=== PATIENT | male | born 1945 | race African-American/Black ===

== ENCOUNTER 2016-10-18 19:38 | Inpatient (IN) | payer MEDICARE ==
--- NOTE | ~2016-10-18 | DS ---
Discharge Summary [facility] [address] [facility] [place]. [address] NAME: XIMENA BARCENAS : 49 STATUS : DIS IN PAT#: [id number] AGE: 71 ADM/REG DATE : 10/19/16 MR#: [id number] REPORT SERV DATE: 10/30/16 DICTATED BY: ALEKS BUI DATE: 10/29/16 REPORT STATUS : Draft TRANSCRIBED BY: ANCA DATE: 10/29/16 Data Collection from hospitalization DISCHARGE DIAGNOSES: 1. Advanced Lewy-Body dementia with severe dysphagia. 2. Conditioned with increased lethargy and dehydration. 3. Hypertension. 4. History of cerebrovascular disease. 5. Chronic kidney disease. 6. Anemia. 7. Psoriasis and xerosis. 8. Chronic constipation. 9. Subclinical hyperthyroidism. 10.Former smoker. CONSULTATIONS: None. PROCEDURES PERFORMED: 1. CT scan of the brain without contrast, 10/18/2016. 2. Electroencephalogram, 10/21/2016. DISCHARGE MEDICATIONS: Isopto Atropine 2 drops three times a day as instructed, Kenalog ointment applied to affected area topically daily, Tylenol suppository 650 mg per rectum every six hours as needed, Transdermal Scopolamine Patch one patch topically every 72 hours, morphine 2 mg subcutaneously every four hours as needed for shortness of breath and pain, Tylenol 325 mg two tablets every six hours as needed for temperature greater than 100.5, Ativan 0.5 mg subcutaneously every four hours as needed for restlessness, and scopolamine patch 1.5 mg every 72 hours. CONDITION AT DISCHARGE: Stable. DISPOSITION: The patient was discharged to [facility]. HOSPITAL COURSE: This is a 71-year-old man who has Lewy body dementia and is a patient of ours of [facility]. He has had a decline in his mentation over the past few months, and two weeks prior to this admission he required feedings, whereas he had not required this before and he was speaking much less. On the day of admission, I received a call from the Respite at [facility] reporting that he had quite a decline over the past two weeks. He was nonverbal, he was not eating at all. He was not walking or standing. Due to his decline, he was transferred to the emergency room for evaluation. In the emergency room, he had a blood pressure of 69/30 and a temperature of 91 rectally. He was started on hydration. He had an essentially normal BMP. Urinalysis was negative. A CT scan of the brain without contrast did not show anything acute, only moderate chronic changes of ischemia. He had a normal troponin in the emergency room. The patient's family had elected for comfort care at this point. He was admitted to the hospital for further evaluation and treatment. Upon admission, the patient had been pocketing food with no significant nutritional intake Discharge Summary [address] [address] NAME: XIMENA BARCENAS : 49 STATUS : DIS IN PAT#: [id number] AGE: 71 ADM/REG DATE : 10/19/16 MR#: [id number] REPORT SERV DATE: 10/30/16 DICTATED BY: ALEKS BUI DATE: 10/29/16 REPORT STATUS : Draft TRANSCRIBED BY: ANCA DATE: 10/29/16 for one to three days. It was felt that as hypothermia was possibly related to aspiration and sepsis versus the flu. He was being held n.p.o. Oral care was provided. We were going to use the Kam Hugger as needed for hypothermia. He was going to be checked for the flu. We would obtain blood cultures and start him on Zosyn for possible aspiration pneumonia. Comfort care only was going to be provided, and he would be given end of life care in the form of an analgesia needed or any anti-anxiety medication as needed. A scopolamine patch would be placed and changed regularly as well as atropine drops for oral secretions. The following day, the patient was lethargic, he would only say few words occasionally, he was not eating. Blood culture showed no growth at this time. Urinalysis was negative. Blood cultures were negative. Chest x-ray was negative. IV fluids and Zosyn were continued. The Vega catheter was removed. There was blood in the Veag likely due to trauma. He had some jerking movement of the right arm. An EEG was requested. Speech/Language Pathology evaluated the patient. On the , an EEG was performed. He had an occasional cough. Atropine was increased. The scopolamine patch was stopped. The following day, the patient was still not eating, he had shallow inspiration. Chest x-ray shows otherwise no acute cardiopulmonary abnormality. Speech and language pathology performed a bedside swallow study. The patient had overt signs and symptoms of aspiration. The patient had not eaten in several days. Discharge planning was performed. On 10/23/2016, the patient had some bloody sputum. I felt the bloody sputum was likely due to dry mucosa and from the drying effects of oxygen. Oxygen was discontinued. He remained n.p.o., prognosis was grim. Discharge instructions were given. Due to his stable condition, he was discharged to [facility] with the above-stated instructions. Information collected by: Gillian Armenta I submit the above information as my discharge summary. TG/MODL Aleks Bui M.D. / [id number] CC: Aleks Bui M.D. [facility]
--- NOTE | ~2016-10-18 | EEG ---
Electroencephalogram [facility] [address] [place]. [address] NAME: XIMENA BARCENAS : 49 STATUS : ADM IN PAT#: [id number] AGE: 71 ADM/REG DATE : 10/19/16 MR#: [id number] REPORT SERV DATE: 10/21/16 DICTATED BY: SISI SKAGGS DATE: 10/21/16 REPORT STATUS : Draft TRANSCRIBED BY: MODL DATE: 10/21/[address] France Martinez. [id number]. This is an 18 channel digital EEG of a patient who has been unresponsive, was evidently found down hypothermic and hypertensive, with a history of dementia and underlying traumatic brain injury. The background reveals low voltage, slow activity, rarely with intermixed alpha or theta. Some frontal slow occurs occasionally, not in any runs suggesting frontal intermittent rhythmic delta. When the patient seems to be somewhat more alert, there is muscle artifact, and occasional jerking that seems to coincide with muscle spikes only. Nothing clearly epileptiform was seen or focal. Photic stimulation did not result in driving. Sleep patterns were not seen. No clear focality or laterality noted. EKG was sinus rhythm 72. IMPRESSION: 1. SLOW RECORD WITH NO EVIDENCE THAT ATTEMPTS TO HAVE BEEN MADE TO WAKE THE PATIENT, SO IT IS NOT CLEAR WHETHER THERE IS AN IMPROVEMENT IF THAT WERE DONE. THE PATIENT WAS NOTED TO TALK SOMETIMES WITH QUITE A SLOW LOW-VOLTAGE BACKGROUND. THIS SUGGESTS ENCEPHALOPATHY OF ANY ETIOLOGY, TOXIC, METABOLIC, MULTIPLE STRUCTURAL DISORDER, ETC. 2. JERKING DID NOT SHOW ANY EPILEPTIFORM COMPONENTS. SF/MARIELYL Sisi Skaggs M.D. / [id number] CC: Mayra Bui M.D. UNKNOWN
--- NOTE | ~2016-10-18 | HP ---
History And Physical [place] [id number] [facility] [place]. [address] NAME: XIMENA BARCENAS : 49 STATUS : ADM Claudia PAT#: [id number] AGE: 71 ADM/REG DATE : 10/18/16 MR#: [id number] REPORT SERV DATE: 10/19/16 DICTATED BY: ALEKS BUI DATE: 10/19/16 REPORT STATUS : Draft TRANSCRIBED BY: MODL DATE: 10/19/16 DATE OF ADMISSION: 10/18/2016 HISTORY OF PRESENT ILLNESS: This is a 71-year-old black man with Lewy body dementia, a patient of ours at [facility]. Review of his chart reveals a steady decline in his mentation over the last few months, such that 2 weeks ago, he required feeding whereas he had not before and he was speaking much less. On the day of admission, I received a call from the respite site at [facility] reporting that he had had quite a decline in the eyes of that nurse from the two weeks prior when he had seen him. He was nonverbal. He was not eating at all. He was not walking or standing whereas two weeks before, the nurse described him actually lifting an ottoman putting it up on a chair for them, he was strong enough for that. Due to this decline, he was transferred to the emergency room for evaluation. In the emergency room, he was found to have a blood pressure down in the 69/30, a temperature of 91 degrees rectally. He was begun on hydration. He had an essentially normal BMP. White count was 5000. Urinalysis was negative. CT of the head did not show anything acute, only moderate chronic changes of ischemia. He had a normal troponin in the emergency room. There was discussion in the emergency room with the family and confusion about what their actual desires were with the POST form showing that he was DNR with limited interventions, but with the daughter wondering if she should give full treatment. I spoke more with the daughter on the morning after admission and more in detail with her and the family, and they have chosen at this point comfort care. PAST MEDICAL HISTORY: He does have Lewy body dementia as well as recent weight loss, history of cerebrovascular disease, hypertension, chronic kidney disease with anemia, psoriasis and xerosis, chronic constipation, and subclinical hyperthyroidism. SURGERIES: Included a right total knee replacement, ablation for prostate cancer. SOCIAL HISTORY: He lives with his daughter and her partner. He is a former smoker. REVIEW OF SYSTEMS: Besides that mentioned above, no recent vomiting. He has had a cough when he eats, at least on the day prior to admission. He has been quite sleepy the day prior to admission, and he has had increased secretions for 2 to 3 days prior to admission. PHYSICAL EXAMINATION: VITAL SIGNS: This morning, blood pressure 81/50, temperature 99 with a Kam Hugger on, heart rate 118, respiratory rate 22, O2 saturation has remained between 98 and 100 on 2 L. GENERAL: He is lying in bed, unresponsive to my voice. He does awaken and flutter his eyes when he is moved. He has drooling of his mouth. RESPIRATORY: His breathing is with some mild difficulty. ABDOMEN: Soft with normal bowel sounds. CARDIOVASCULAR: Heart rate is rapid but regular. He has no edema of the legs. SKIN: He has some dryness of the skin of upper and lower extremities. He has 2 miniscule healing biopsy sites on his left upper arm from a biopsy done six days ago, one on the left History And Physical [address] [address] NAME: XIMENA BARCENAS : 49 STATUS : ADM Claudia PAT#: [id number] AGE: 71 ADM/REG DATE : 10/18/16 MR#: [id number] REPORT SERV DATE: 10/19/16 DICTATED BY: ALEKS BUI DATE: 10/19/16 REPORT STATUS : Draft TRANSCRIBED BY: MODL DATE: 10/19/16 upper arm and one on the left upper chest. LABORATORY DATA: The morning of admission, his procalcitonin is normal at 0.05. His lactate is normal. He has mild increase in his transaminases. ASSESSMENT AND PLAN: 1. Lewy body dementia, apparently progressing. 2. Dysphagia, pocketing food with no significant nutritional intake for 1 to 3 days. 3. Hypothermia, perhaps related to aspiration and sepsis versus the flu. We will keep him n.p.o. for now. Give oral care. Use the Kam Hugger as needed for hypothermia. Check him for the flu, do some blood cultures, and get him started on Zosyn for possible aspiration pneumonia. After the discussion this morning with the family, I have signed a POST form indicating comfort care only and he will be given end-of-life care in the form of any analgesia needed, any antianxiety medications needed, a scopolamine patch changed regularly, as well as atropine drops for the oral secretions, and tomorrow a plan will be made for his disposition. ELISA/ANCA Aleks Bui M.D. / [id number] CC: Aleks Bui M.D.
[~2016-10-18 19:38] MED LIST: APRES50 PO; CALTRA600D PO; CAT3 PO; COUMADIN4 MG PO; COUMADIN6 MG PO; COUMADIN7.5 MG PO; DRISDOL50000 UNT PO; FOLIC PO; HYDROCHLOROT12.5 MG PO; HYDROCHLOROT25 MG PO; LOTE10 PO; LOTE20 PO; NAMENDA10 MG PO; NORV5 PO; OTC EYE DROPS OPH; ZOCOR40 PO
[2016-10-18] MEDS ORDERED: SENTAB PO (21:08)
[2016-10-18] MEDS ORDERED: MIRALAX POWDER1 PKT PO (21:08)
[2016-10-18] MEDS ORDERED: LAMIS15 TOP (21:08)
[2016-10-18] MEDS ORDERED: TRIAMCINOLONE O80 GM TOP (21:09)
[2016-10-18] MEDS ORDERED: ZOCOR40 PO (21:09)
[2016-10-18] MEDS ORDERED: FOLIC PO (21:09)
[2016-10-18] MEDS ORDERED: REM15 PO (21:10)
[2016-10-18] MEDS ORDERED: ASAB PO (21:10)
[2016-10-18] MEDS ORDERED: MELATONIN5 M1 PO (21:10)
[2016-10-18] MEDS ORDERED: HYDROCHLOROT25 MG PO (21:11)
[2016-10-18] MEDS ORDERED: COLACEUDL PO (21:11)
[2016-10-18] MEDS ORDERED: OCEAN NAS (21:12)
[2016-10-18] MEDS ORDERED: VIACTIV PO (21:12)
[2016-10-18] MEDS ORDERED: HYDROCERIN TOP (21:13)
[2016-10-18] MEDS ORDERED: TRANSSCOP TOP (21:13)
[2016-10-18] MEDS ORDERED: ACET500CAP PO (21:14)
[2016-10-18] MEDS ORDERED: LOTE10 PO (21:15)
[2016-10-18] MEDS ORDERED: SILTUSSIN DM PO (21:15)
[2016-10-18 21:16] LABS: ASCORBIC ACID (UR NOT ORDER) 40 (NEG); BILIRUBIN, URINE NEGATIVE (NEG); ER URINALYSIS TAT 0 Hrs 09 Mins; KETONE, URINE NEGATIVE (NEG); LEUKOCYTE ESTERASE(NOT OR NEG (NEG); NITRITE (URINE) NEG (NEG); WBC (NOT ORDERED) (RFLEX) 1 (0-5)
[2016-10-18] MEDS ORDERED: VITD PO (21:16)
[2016-10-18] MEDS ORDERED: DEPASPRINK PO (21:16)
[2016-10-18 21:21] LABS: BASOPHILS 0.2 %; BASOPHILS ABSOLUTE 0.01 10/3/uL (0.0-0.16); EOSINOPHILS 1.8 %; EOSINOPHILS ABSOLUTE 0.09 10/3/uL (0.0-0.53); ER CBC TAT 0 Hrs 14 Mins; HEMATOCRIT 31.8 % (40.0-51.0); HEMOGLOBIN 10.8 g/dL (13.6-17.8); IMMATURE GRANULOCYTES 0.2 %; IMMATURE GRANULOCYTES ABSOLUTE 0.01 10/3/uL (0.0-0.11); LYMPHOCYTES ABSOLUTE 1.28 10/3/uL (0.67-4.30); MANUAL DIFF NO %; MEAN CORPUSCULAR HEMOGLOB 29.3 pg (26.0-34.0); MEAN CORPUSCULAR VOLUME 86.4 fL (80-100); MONOCYTES 7.8 %; NEUTROPHILS ABSOLUTE 3.34 10/3/uL (2.02-8.40); PLATELET COUNT 99 10/3/uL (150-400); RBC DISTRIBUTION WIDTH 17.4 % (12.0-16.0); RED CELL COUNT 3.68 10/6/uL (4.7-6.1); WHITE BLOOD CELLS 5.1 10/3/uL (4.5-10.5)
[2016-10-18 21:33] LABS: GIANT PLATELET MOD; PLATELET ESTIMATE SLT DEC (ADEQUATE)
[2016-10-18 21:38] LABS: ALBUMIN 2.5 G/DL (3.5-5.0); CALCIUM, SERUM 9.7 MG/DL (8.5-10.4); CHLORIDE, SERUM 104 MMOL/L (96-112); CO2 (CARBON DIOXIDE) 30 MMOL/L (24-34); CREATININE 1.08 MG/DL (0.70-1.30); FREE T4 1.17 NG/DL (0.76-1.46); GFR AFRICAN AMERICAN 81 ML/MIN (>=60); GFR NON AFRICAN AMERICAN 70 ML/MIN (>=60); SGPT(ALT) 90 U/L (5-65); SODIUM, SERUM 143 MMOL/L (135-148)
[2016-10-18 21:40] LABS: A/G RATIO 0.6 (0.7-1.9); BUN (BLOOD UREA NITROGEN) 46 MG/DL (6-23); GLOBULIN 4.5 G/DL (2.5-4.1); GLUCOSE, SERUM 94 MG/DL (60-99); TOTAL BILIRUBIN < 0.1 MG/DL (0-1.2)
[2016-10-18 21:41] LABS: ALKALINE PHOSPHATASE 83 U/L (45-117); POTASSIUM, SERUM 4.8 MMOL/L (3.5-5.3); SGOT(AST) 76 U/L (5-40)
[2016-10-19 09:31] LABS: BASOPHILS 0 %; EOSINOPHILS 0.5 %; EOSINOPHILS ABSOLUTE 0.02 10/3/uL (0.0-0.53); HEMATOCRIT 29.3 % (40.0-51.0); HEMOGLOBIN 9.6 g/dL (13.6-17.8); LYMPHOCYTES 26.3 %; LYMPHOCYTES ABSOLUTE 1.03 10/3/uL (0.67-4.30); MEAN CORPUS HGB CONC 32.8 g/dL (32.0-36.0); MEAN CORPUSCULAR HEMOGLOB 28.6 pg (26.0-34.0); MEAN CORPUSCULAR VOLUME 87.2 fL (80-100); MEAN PLATELET VOLUME 12.4 fL (9.2-13.0); MONOCYTES 12.3 %; MONOCYTES ABSOLUTE 0.48 10/3/uL (0.21-1.20); NEUTROPHILS 60.9 %; NEUTROPHILS ABSOLUTE 2.38 10/3/uL (2.02-8.40); PLATELET COUNT 101 10/3/uL (150-400); RBC DISTRIBUTION WIDTH 17.6 % (12.0-16.0); RED CELL COUNT 3.36 10/6/uL (4.7-6.1); WHITE BLOOD CELLS 3.9 10/3/uL (4.5-10.5)
[2016-10-19 09:32] LABS: ANISOCYTOSIS 1+ (5-10/OIF) (0-5/OIF); PLATELET ESTIMATE SLT DEC (ADEQUATE)
[2016-10-19 09:33] LABS: MICROCYTES 1+ (5-10/OIF) (0-5/OIF)
[2016-10-19 09:34] LABS: MANUAL DIFF NO %
[2016-10-19 09:36] LABS: BUN (BLOOD UREA NITROGEN) 41 MG/DL (6-23); CALCIUM, SERUM 8.9 MG/DL (8.5-10.4); CHLORIDE, SERUM 109 MMOL/L (96-112); CO2 (CARBON DIOXIDE) 27 MMOL/L (24-34); CPK 107 U/L (0-200); CREATININE 1.42 MG/DL (0.70-1.30); GFR AFRICAN AMERICAN 58 ML/MIN (>=60); GFR NON AFRICAN AMERICAN 50 ML/MIN (>=60); GLUCOSE, SERUM 94 MG/DL (60-99); POTASSIUM, SERUM 5.1 MMOL/L (3.5-5.3); SODIUM, SERUM 144 MMOL/L (135-148); TROPONIN I 0.02 NG/ML (<0.05)
[2016-10-19 09:54] LABS: PROCALCITONIN <0.05 ng/mL (<0.5)
[2016-10-19 20:04] LABS: INFLUENZA A SCREEN NEGATIVE (NEGATIVE); INFLUENZA B SCREEN NEGATIVE (NEGATIVE)
[2016-10-21 06:42] LABS: BASOPHILS 0.2 %; BASOPHILS ABSOLUTE 0.01 10/3/uL (0.0-0.16); EOSINOPHILS 1.6 %; IMMATURE GRANULOCYTES 0.2 %; IMMATURE GRANULOCYTES ABSOLUTE 0.01 10/3/uL (0.0-0.11); LYMPHOCYTES 25.2 %; LYMPHOCYTES ABSOLUTE 1.56 10/3/uL (0.67-4.30); MANUAL DIFF NO %; MEAN CORPUS HGB CONC 33.3 g/dL (32.0-36.0); MEAN CORPUSCULAR HEMOGLOB 29.3 pg (26.0-34.0); MEAN CORPUSCULAR VOLUME 87.9 fL (80-100); MONOCYTES 8.4 %; MONOCYTES ABSOLUTE 0.52 10/3/uL (0.21-1.20); NEUTROPHILS 64.4 %; NEUTROPHILS ABSOLUTE 3.98 10/3/uL (2.02-8.40); PLATELET COUNT 91 10/3/uL (150-400); RBC DISTRIBUTION WIDTH 17.8 % (12.0-16.0); RED CELL COUNT 3.07 10/6/uL (4.7-6.1); WHITE BLOOD CELLS 6.2 10/3/uL (4.5-10.5)
[2016-10-21 06:55] LABS: BUN (BLOOD UREA NITROGEN) 32 MG/DL (6-23); CALCIUM, SERUM 8.8 MG/DL (8.5-10.4); CHLORIDE, SERUM 112 MMOL/L (96-112); CO2 (CARBON DIOXIDE) 25 MMOL/L (24-34); CREATININE 1.35 MG/DL (0.70-1.30); GFR AFRICAN AMERICAN 62 ML/MIN (>=60); GFR NON AFRICAN AMERICAN 53 ML/MIN (>=60); GLUCOSE, SERUM 75 MG/DL (60-99); POTASSIUM, SERUM 4.6 MMOL/L (3.5-5.3); SODIUM, SERUM 144 MMOL/L (135-148)
[2016-10-22 06:05] LABS: BASOPHILS 0 %; EOSINOPHILS ABSOLUTE 0.11 10/3/uL (0.0-0.53); HEMATOCRIT 28.3 % (40.0-51.0); HEMOGLOBIN 9.2 g/dL (13.6-17.8); IMMATURE GRANULOCYTES 0.2 %; IMMATURE GRANULOCYTES ABSOLUTE 0.01 10/3/uL (0.0-0.11); LYMPHOCYTES 22.9 %; LYMPHOCYTES ABSOLUTE 1.24 10/3/uL (0.67-4.30); MANUAL DIFF NO %; MEAN CORPUS HGB CONC 32.5 g/dL (32.0-36.0); MEAN CORPUSCULAR VOLUME 89.3 fL (80-100); MEAN PLATELET VOLUME 11.6 fL (9.2-13.0); MONOCYTES 10.1 %; MONOCYTES ABSOLUTE 0.55 10/3/uL (0.21-1.20); NEUTROPHILS 64.8 %; NEUTROPHILS ABSOLUTE 3.51 10/3/uL (2.02-8.40); PLATELET COUNT 82 10/3/uL (150-400); RBC DISTRIBUTION WIDTH 17.6 % (12.0-16.0); RED CELL COUNT 3.17 10/6/uL (4.7-6.1); WHITE BLOOD CELLS 5.4 10/3/uL (4.5-10.5)
[2016-10-22 06:21] LABS: CHLORIDE, SERUM 111 MMOL/L (96-112); CREATININE 1.14 MG/DL (0.70-1.30); GFR AFRICAN AMERICAN 76 ML/MIN (>=60); GFR NON AFRICAN AMERICAN 65 ML/MIN (>=60); GLUCOSE, SERUM 67 MG/DL (60-99); POTASSIUM, SERUM 4.1 MMOL/L (3.5-5.3); SODIUM, SERUM 143 MMOL/L (135-148)
[2016-10-22 06:22] LABS: BUN (BLOOD UREA NITROGEN) 28 MG/DL (6-23); CO2 (CARBON DIOXIDE) 20 MMOL/L (24-34)
== END 2016-10-23 18:07 | DRG 57 ==
LOC: ER 19:38 → CDU1 22:34 → 5SO 22:46
PROVIDERS: Emergency Medicine; Family Medicine; Internal Medicine Geriatric Medicine
DX: G31.83 Neurocognitive disorder with Lewy bodies (principal); F02.80 Dementia in other diseases classified elsewhere, unspecified severity, without behavioral disturbance, psychotic disturbance, mood disturbance, and anxiety; R13.10 Dysphagia, unspecified; I12.9 Hypertensive chronic kidney disease with stage 1 through stage 4 chronic kidney disease, or unspecified chronic kidney disease; N18.9 Chronic kidney disease, unspecified; D63.1 Anemia in chronic kidney disease; E05.90 Thyrotoxicosis, unspecified without thyrotoxic crisis or storm; Z51.5 Encounter for palliative care; Z66 Do not resuscitate; Z87.891 Personal history of nicotine dependence; Z86.73 Personal history of transient ischemic attack (TIA), and cerebral infarction without residual deficits
CPT/HCPCS: 70450; 71010; 80048; 80053; 81001; 82550; 82962; 83605; 84145; 84439; 84443; 84484; 85025; 87040; 87804; 92610-GN; 93005; 95816; 99285; A9270-GY; J0456; J2543